=== PATIENT | male | born 1990 | race Caucasian/White ===

== ENCOUNTER 2022-04-26 10:13 | Emergency (ER) | payer OTHER ==
[~2022-04-26] VITALS: Ht 167.6 cm; Wt 79.5 kg
[2022-04-26] MEDS ORDERED: HYDROCODONE/ACETAMINOPHEN 5-325 MG TABLET PO ONE (12:15)
[2022-04-26 12:23] VITALS: BP 120/60
== END 2022-04-26 12:25 | disposition home or self-care (01) ==
LOC: EMS 10:13
DX: S22.31XA Fracture of one rib, right side, initial encounter for closed fracture (principal); F17.210 Nicotine dependence, cigarettes, uncomplicated; W01.0XXA Fall on same level from slipping, tripping and stumbling without subsequent striking against object, initial encounter; Y93.89 Activity, other specified; Y92.89 Other specified places as the place of occurrence of the external cause; Y99.8 Other external cause status
CPT/HCPCS: 71100; 99283

== ENCOUNTER 2025-03-22 12:26 | Emergency (ER) | payer OTHER ==
[~2025-03-22] VITALS: Ht 165.1 cm; Wt 99.6 kg
[2025-03-22 12:41] VITALS: BP 125/78; PULSE 85; RESP 18; TEMP 97.5; O2SAT 97
== END 2025-03-22 15:04 | disposition home or self-care (01) ==
LOC: EMS 12:26
DX: H92.02 Otalgia, left ear (principal); L29.9 Pruritus, unspecified; F17.210 Nicotine dependence, cigarettes, uncomplicated
CPT/HCPCS: 99282; 99284; Z7502